=== PATIENT | male | born 1935 ===

== ENCOUNTER 2016-07-21 07:34 | Day surgery (SDC) | payer MEDICARE, OTHER ==
[2016-07-17 08:31] VITALS: BMI 28.4
[2016-07-21 08:11] VITALS: TEMP 97
[2016-07-21] MEDS ORDERED: Lactated Ringer's 500 ML IV ONE (09:07)
[2016-07-21] MEDS ORDERED: Propofol 10 mg/ml Inj (20 ML) ONE (09:08)
[2016-07-21 11:26] VITALS: BP 114/56; PULSE 65; RESP 12; O2SAT 98
== END 2016-07-21 10:30 | disposition home or self-care (01) ==
LOC: C.ENDO 07:34
PROVIDERS: ATTEND Internal Medicine Gastroenterology
DX: K29.50 Unspecified chronic gastritis without bleeding (principal); K21.0 Gastro-esophageal reflux disease with esophagitis
CPT/HCPCS: 43239; 82948; 88305; J2704; J7120